=== PATIENT | male | born 1950 | race Caucasian/White ===

== ENCOUNTER → 2016-05-18 | Outpatient (CLI) | payer OTHER, MEDICARE ==
--- NOTE | 2016-05-18 15:27 | DX ---
Lumbar Spine, 4 Views, at 2:39 p.m. Clinical History: 65-year-old male with low back pain radiating down the left leg for one month, wors ening over the last 4 days with no specific antecedent trauma. ICD-10 Diagnostic Code: M54.5. Comparison Study: None. Findings: There are 5 nonrib-bearing lumbar-type vertebral bodies. The vertebral body heights are ector ntained. There is 7 mm of L3 posterolisthesis above L4, and 5 mm of L4 anterolisthesis above L5. Ther e are ventral traction spurs at each level, however, most pronounced at L3 and L5. There is moderate L4-L5 and severe L5-S1 degenerative disk space narrowing. There is facet hypertrophy, most pronounced at the L4-L5 and L5-S1 levels, and a lower canal stenosis is not excluded. The oblique views do not demonstrate any pars interarticularis defect or facet malalignment. The interpediculate distances are appropriate. There is some degenerative subchondral sclerosis associated with the upper SI joints. T he sacral arcuate lines are well-contoured. Numerous phleboliths are seen in the pelvis. Each femoral head is well-seated within its respective acetabulum. The femoral and acetabular joint spaces are re asonably well-preserved. Impression: Multilevel degenerative spondylosis, with disk disease, which is most pronounced at L4-L 5 and L5-S1, where there is accompanying facet osseous arthropathy. If there is further concern regarding the patient's lumbago and left radicular symptoms, correlative MR imaging is recommended.
== END ==
LOC: BMCIMAGING 14:42
PROVIDERS: ATTEND Family Medicine
DX: M47.896 Other spondylosis, lumbar region (principal); M51.36 Other intervertebral disc degeneration, lumbar region; M12.88 Other specific arthropathies, not elsewhere classified, other specified site; M43.16 Spondylolisthesis, lumbar region

== ENCOUNTER 2016-06-09 13:51 | Observation (INO) | payer OTHER, MEDICARE ==
[2016-06-09] MEDS ORDERED: DIAZEPAM 10 MG/2 ML SYR IVP ONE (14:46)
--- NOTE | 2016-06-09 15:10 | EDPHY ---
H & P Stated Complaint: Sciatica-worse today Left side. Time Seen by Provider: 06/09/16 13:53 HPI/ROS: CHIEF COMPLAINT: left-sided low back pain, radiation down the leg HISTORY OF PRESENT ILLNESS: 65-year-old male presents emergency department complaining of worsening left-sided low back pain that radiates down left leg to foot. Patient states this started about 3 weeks ago, he has had 2 sessions of physical therapy a steroid Dosepak with no relief. Patient reports 3 days ago he was driving around site seeing with his friends and his pain has been worse. Patient went to his primary care's office today, his pain was not controlled he could not get off the table so they called an ambulance to transport him to the emergency department. Patient denies loss of control of his bowel or bladder, no saddle anesthesias, no leg weakness. No fevers. REVIEW OF SYSTEMS: A comprehensive 10 point review of systems is otherwise negative aside from elements mentioned in the history of present illness. Source: Patient Exam Limitations: No limitations - Personal History Current Tetanus/Diphtheria Vaccine: Unsure - Medical/Surgical History Hx Asthma: No Hx Chronic Respiratory Disease: No Hx Diabetes: No Hx Cardiac Disease: No Hx Renal Disease: No Hx Cirrhosis: No Hx Alcoholism: No Hx HIV/AIDS: No Hx Splenectomy or Spleen Trauma: No Other PMH: HTN-no longer takes meds, sciatica, Fx ribs. - Social History Smoking Status: Never smoked - Physical Exam Exam: Physical Exam Gen: Alert and Oriented, grimacing HEENT: PERRL, moist mucous membranes NECK: no meningismus CV: regular rate and regular rhythm PULM: CTAB, no wheezes ABDOMEN: soft, non tender to palpation, BS present BACK: Left-sided SI joint tenderness to palpation mild swelling NEURO: Neurologically grossly intact, 2/4 deep tendon reflexes right leg patellar and Achilles, unable to perform on left due to patient fighting with any movement of leg. EXTREMITIES: normal appearing SKIN: no rash or break in skin on exposed skin PSYCH: answers questions appropriately. Constitutional: Initial Vital Signs Temperature (C) 36.8 C 06/09/16 14:08 Heart Rate 76 06/09/16 14:08 Respiratory Rate 16 06/09/16 14:08 Blood Pressure 160/100 H 06/09/16 14:08 O2 Sat (%) 95 06/09/16 14:08 O2 Delivery Mode Room Air O2 (L/minute) 5 Allergies/Adverse Reactions: No Known Allergies Allergy (Unverified 06/09/16 14:12) Home Medications: Medication Instructions Recorded NK [No Known Home Meds] 06/09/16 Medical Decision Making - Diagnostics Imaging: Lumbar x-ray done on May 18- Impression: Multilevel degenerative spondylosis, with disk disease, which is most pronounced at L4 -L5 and L5-S1, where there is accompanying facet osseous arthropathy. If there is further concern regarding the patient's lumbago and left radicular symptoms, correlative MR imaging is recommended. Dictated By: John Santiago MD MRI of l spine pending ED Course/Re-evaluation: Patient has an IV in place by EMS and was given 100 mcg of fentanyl EN route. Patient has no evidence of cauda equina syndrome or spinal abscess though his pain is not controlled. MRI L-spine without contrast has been ordered. Patient has been given 5 mg of IV Valium and 0.5 mg of Dilaudid. 420pm- awaiting MRI. 5pm-Patient will be admitted to Hospital Medicine for pain control. I have spoken with Dr. gena arteaga. MRI is pending. Report passed on to Dr. Cline at the end of my shift. He will follow up on the MRI and call Neurosurgery if needed. Differential Diagnosis: The differential diagnosis for the patient's back pain included but was not limited to musculo-skeletal pain, epidural abscess, herniated disk, spinal fracture, cauda equina and intra-abdominal causes including urinary system. - Data Points Medications Given: Discontinued Medications Diazepam (Valium Injection) 5 mg IVP EDNOW ONE Stop: 06/09/16 14:47 Last Admin: 06/09/16 15:13 Dose: 5 mg Hydromorphone HCl (Dilaudid) 0.5 mg IVP EDNOW ONE Stop: 06/09/16 16:00 Last Admin: 06/09/16 16:15 Dose: 0.5 mg Departure - Departure Disposition: [facility] Inpatient Acute Clinical Impression: Intractable back pain, Left lumbar radiculitis Condition: Fair
[2016-06-09] MEDS ORDERED: HYDROmorphONE/DILAUDID 1 MG/ML SYR IVP ONE ×2 (15:59→16:51)
[2016-06-09] MEDS ORDERED: ACETAMINOPHEN 325 MG TAB PO PRN (17:06)
[2016-06-09] MEDS ORDERED: ONDANSETRON DISINTEGRATING 4 MG TAB PO PRN (17:06)
[2016-06-09] MEDS ORDERED: HYDROmorphONE/DILAUDID 2 MG TAB PO PRN (17:06)
[2016-06-09] MEDS ORDERED: ONDANSETRON 4 MG/2 ML VIAL IVP PRN (17:06)
[2016-06-09] MEDS ORDERED: NS 1,000 ML IV SCH (17:15)
--- NOTE | 2016-06-09 17:17 | PDGENHP ---
History and Physical - Chief Complaint Acute back pain - History of Present Illness HPI: 65-year-old male presenting with acute back pain characterized as severe pain located in his left lower back with associated radiating pain down his left lower extremity to his anterior kruse. Onset of symptoms was approximately 3 weeks ago and duration has been intermittent thereafter. It has been exacerbated by ambulation and the patient is currently unable to ambulate 2/2 pain. It was mildly alleviated with repositioning, notably into the seated or supine position, as well as oxycodone immediate release 20 mg. He has been taking ibuprofen 800 mg as well as a Medrol Dosepak without any particular relief from either 1 of those modalities. He was able to engage in physical therapy initially after the onset of symptoms, but the symptoms have become so severe that he is currently unable to. He also reports that symptoms became particularly severe approximately 4 days ago while he was sitting for a prolonged duration of time and now they have become intractable. He denies any trauma to his back several weeks ago and reports that he cannot otherwise localized any precipitating factors. History Information - Allergies/Home Medication List Allergies/Adverse Reactions: No Known Allergies Allergy (Unverified 06/09/16 14:12) Home Medications: NK [No Known Home Meds] 06/09/16 [Last Taken Unknown] I have personally reviewed and updated: family history, medical history, social history, surgical history - Past Medical History hypertension (Not on medication) Additional medical history: Back pain approximately 20 years ago - Surgical History Reports: no pertinent surgical hx - Family History Additional family history: Sister with rheumatoid arthritis, mother with osteoarthritis - Social History Smoking Status: Never smoked Alcohol Use: None Drug Use: None Additional social history: 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, ambulatory 20% of his time Review of Systems ROS: 10pt was reviewed & negative except for what was stated in HPI & below Genitourinary: Reports: urgency Muscolosketal: Reports: back pain, other (Kruse pain) Physical Exam Temp Pulse Resp BP Pulse Ox 36.8 C 83 16 138/90 H 96 06/09/16 14:08 06/09/16 15:13 06/09/16 15:13 06/09/16 15:13 06/09/16 15:15 Constitutional: no apparent distress, appears nourished, uncomfortable, No not in pain Eyes: PERRL, anicteric sclera, EOMI Ears, Nose, Mouth, Throat: moist mucous membranes, hearing normal, ears appear normal, no oral mucosal ulcers Cardiovascular: regular rate and rhythym, no murmur, rub, or gallop, No edema Respiratory: no respiratory distress, no rales or rhonchi, clear to auscultation Gastrointestinal: normoactive bowel sounds, soft, non-tender abdomen, no palpable masses Genitourinary: no bladder fullness, no bladder tenderness Skin: warm, normal color, no rashes or abrasions, no fluctuance, no induration, No mottled Musculoskeletal: other (No tenderness to palpation over the left hip or left groin, no left knee effusion, no muscular abnormality in the left kruse or left quadriceps) Neurologic: AAOx3, sensation intact bilaterally, other (Positive straight leg raise at approximately 30 degrees on the left), No weakness Psychiatric: interacting appropriately, not anxious, not encephalopathic, thought process linear Assessment & Plan Assessment: 65-year-old male presenting with acute lower back pain and sciatica Plan: 1. Lower back pain. Acute, new problem this provider, further workup indicated. X-ray from 05/18/2016 demonstrates spondylolisthesis with L4-L5 and L5-S1 facet arthropathy, most likely source of patient's pain -get MRI of lower back to determine whether surgical intervention is indicated ( discussed with Dr. Cline and Bee, herniated disc at the suspected level) -hold NSAIDS given possibility of surgical intervention -as needed oral and IV Dilaudid for breakthrough pain relief -initiate gabapentin 300 mg at bedtime -as needed robaxin -bowel regimen -d/w FEI Eller will consult on patient in AM -make NPO after midnight with lab panel in a.m. in case the patient is an interventional candidate -PT/case management 2. Positional sleep apnea. Reviewed outside records including sleep study from 12/07/[address] Damian Pascual, reports the patient has positional sleep apnea -CPAP p.r.n. Diet. Regular, NPO after midnight Prophylaxis. Moderate risk, SCDs given possible procedural intervention Code. Full Disposition. Anticipated discharge is 06/10/2016, pending stabilization of the patient's pain and inability to ambulate. If patient requires surgical intervention, he will be upgraded to inpatient admission status.
--- NOTE | 2016-06-09 18:05 | MR ---
MRI of the Lumbar Spine (Without Contrast) at 1708 hours Clinical Indications: Left radiculopathy. Technique: Sagittal and axial T1 and T2 and sagittal STIR MR sequences of the lumbar spine, without contrast. Axial imaging from T12-S1. Findings: Lumbar vertebral bodies are of normal height, without compression fractures. Conus medull shira is low lying and ends at L3. T11-T12: Sagittal images demonstrate ventral osteophytes, without disk herniation or stenosis. T12-L1: No disk herniation or stenosis. L1-L2: No disk herniation or stenosis. L2-L3: Mild degenerative disk disease and mild bilateral facet arthropathy resulting in minimal cent ral canal stenosis, without neural foraminal stenosis. L3-L4: Mild degenerative disk disease, circumferential disk bulge, and moderate bilateral facet arth ropathy resulting in mild central canal stenosis, mild retrolisthesis, and mild to moderate left neur al foraminal stenosis. L4-L5: Severe bilateral facet arthropathy, minimal grade 1 anterolisthesis, and left neural foramina l disk herniation resulting in moderate central canal stenosis, severe left neural foraminal stenosis , and mild right neural foraminal stenosis. L5-S1: Severe degenerative disk disease, moderate loss of disk height, endplate diskogenic changes, degenerative retrolisthesis, left paramedian small disk herniation, protrusion, and moderate bilatera l facet arthropathy resulting in moderate to severe bilateral neural foraminal stenosis and mild left lateral recess stenosis, without central canal stenosis. Impression: 1. L4-L5: Severe left neural foraminal stenosis and moderate central canal stenosis secondary to se juanita bilateral facet arthropathy, left neural foraminal disk herniation, and degenerative grade 1 ant erolisthesis. 2. L5-S1: Moderate to severe bilateral neural foraminal stenosis secondary to severe degenerative d isk disease, degenerative grade 1 retrolisthesis, and moderate bilateral facet arthropathy, with left paramedian disk protrusion. 3. Low-lying conus medullaris ending at the L3 level. 4. Please see above findings at specific disk levels. Findings and recommendations given to Dr. Kaz London at 1750 hours, on June 09, 2016. Final report concurs with initial preliminary interpretation.
[2016-06-09] MEDS ORDERED: KETOROLAC 30 MG/1 ML SDV IVP ONE (18:20)
[2016-06-09] MEDS ORDERED: METHOCARBAMOL 750 MG TAB PO PRN (18:21)
[2016-06-09] MEDS ORDERED: MAGNESIUM HYDROXIDE 30 ML UDCUP PO PRN (18:24)
[2016-06-09] MEDS ORDERED: POLYETHYLENE GLYCOL 3350 17 GM PKT PO PRN (18:24)
[2016-06-09] MEDS ORDERED: LACTULOSE 20 GM/30 ML UDCUP PO PRN (18:24)
[2016-06-09] MEDS ORDERED: BISACODYL 10 MG SUPP PR PRN (18:24)
[2016-06-09] MEDS: SENNOSIDES/DOCUSATE SODIUM TAB PO SCH (20:27)
[2016-06-09] MEDS ORDERED: NAPROXEN SODIUM 220 MG TAB PO SCH (21:00)
[2016-06-09] MEDS ORDERED: GABAPENTIN 300 MG CAP PO SCH (21:00)
[2016-06-10] MEDS: HYDROmorphONE/DILAUDID 1 MG/ML SYR IVP PRN ×3 (05:03→10:25)
[2016-06-10 08:44] LABS: % IMMATURE GRANULYOCYTES 0.4 % (0.0-1.1); ABSOLUTE IMMATURE GRANULOCYTES 0.04 10^3/uL (0.00-0.10); ADD DIFF? NO; ADD MORPH? NO; ADD SCAN? NO; ATYPICAL LYMPHOCYTE FLAG 0 (0-99); FRAGMENT RBC FLAG 0 (0-99); HEMOGLOBIN 17.8 g/dL (13.7-17.5); LEFT SHIFT FLG 0 (0-99); LIPEMIA HEMOLYSIS FLAG 90 (0-99); MEAN CELL HEMOGLOBIN 31.1 pg (27.9-34.1); MEAN CELL HEMOGLOBIN CONCENTR. 34.9 g/dL (32.4-36.7); MEAN PLATELET VOLUME 10.4 fL (8.7-11.7); PLATELET CLUMPS FLAG 0 (0-99); PLATELET COUNT 200 10^3/uL (150-400); RED BLOOD CELL COUNT 5.73 10^6/uL (4.40-6.38); RED CELL DISTRIBUTION WIDTH 12.2 % (11.5-15.2)
[2016-06-10 08:49] LABS: INR 1.02 (0.83-1.16); PROTIME(PATIENT) 13.3 SEC (12.0-15.0)
[2016-06-10 08:50] LABS: APTT 26.9 SEC (23.0-38.0)
[2016-06-10 09:15] LABS: ANION GAP 11 mEq/L (8-16); CALCIUM 9.2 mg/dL (8.5-10.4); CARBON DIOXIDE 22 mEq/l (22-31); CHLORIDE 107 mEq/L (97-110); CREATININE 0.9 mg/dL (0.7-1.3); GLOMERULAR FILTRATION RATE > 60; GLUCOSE 113 mg/dL (70-100); POTASSIUM 4.3 mEq/L (3.5-5.2); SODIUM 140 mEq/L (134-144)
[2016-06-10] MEDS ORDERED: DIAZEPAM 10 MG/2 ML SYR IVP PRN (09:15)
[2016-06-10] MEDS: SENNOSIDES/DOCUSATE SODIUM TAB PO SCH (09:29)
--- NOTE | 2016-06-10 10:39 | GCON ---
[f rep st] CONSULTATION NEUROSURGICAL CONSULTATION DATE OF CONSULTATION: 06/10/2016 CHIEF COMPLAINT: Left lower extremity pain. HISTORY OF PRESENT ILLNESS: The patient is a pleasant 65-year-old gentleman who states that approxim ately 3 weeks ago he developed severe left leg pain. The patient was treated at urgent care with Med rol Dosepak, which he states did not provide any particular improvement of the symptoms. He was able to then somewhat manage his pain with use of anti-inflammatories and activity modification. However , his pain recurred and the patient noted that he was having a difficult time standing and walking, b ut was able to sit. Then his pain became nearly intolerable to the point where he could not even sta nd, walk or sit, and needed to lay down. He presented to the emergency room for further evaluation. He was admitted to the hospital for pain control by Dr. London. Currently, the patient reports minimal back pain and primarily left lower extremity radicular symptom s radiating from his left buttock, down his anterior lateral thigh, into the pretibial region and int o the top of the left foot. He denies any weakness or bowel or bladder incontinence. ALLERGIES: No known drug allergies. CURRENT MEDICATIONS: None. PAST MEDICAL HISTORY: Noncontributory. PAST SURGICAL HISTORY: Back cyst removal in childhood. SOCIAL HISTORY: The patient is . He works. He does not smoke. He occasionally drinks beer maybe 2 or 3 times a week. REVIEW OF SYSTEMS: A 10-point review of systems was reviewed and negative except for what is stated in the HPI. PHYSICAL EXAM: GENERAL: A pleasant, healthy-appearing 65-year-old male, in moderate distress. HEAD , EARS, EYES, NOSE, THROAT: Within normal limits. EXTREMITIES: Within normal limits. ABDOMEN: So ft, nontender, nondistended. SKIN: [place], warm and dry. NEUROLOGIC: Patient is awake, alert, and o riented x4. Cranial nerves 2-12 are intact on gross examination. Speech is fluent. Tongue is midli ne. Spinal accessory muscles are intact. There is no weakness in the dorsiflexors, plantar flexors or EHL bilaterally. Reflexes are 1/4 bilateral biceps and brachia radialis, and 2/4 at the left gates llar tendon, 1/4 at the right patellar tendon with no clonus. DATA REVIEW: Lab results: White blood cell count 9.2, hemoglobin 17.8, hematocrit 51, platelets 200 . Chemistry shows sodium of 140, potassium 4.3, chloride 107, carbon dioxide 22, BUN 25, creatinine 0.9. INR 1.02. MRI lumbar spine, without contrast, was reviewed and demonstrates severe bilateral facet arthropathy at L4-5 with a minimal, grade 1 anterolisthesis, and left neural foraminal disc herniation resulting in moderate central canal stenosis and severe left neural foraminal stenosis, and mild right foramina l stenosis. At L5-S1, there is severe degenerative disk disease with moderate loss of disk height, a small left paramedian disk herniation, and moderate bilateral facet arthropathy resulting in moderat e to severe bilateral neural foraminal stenosis and mild left lateral recess stenosis without central canal stenosis. AP and lateral x-rays of the lumbar spine demonstrated mild L4-5 spondylolisthesis. IMPRESSION: This is a 65-year-old male with severe left L5 radicular symptoms likely related to his L4-5 spondylolisthesis, degenerative disease and severe left neural foraminal stenosis, and to a less er degree L5-S1 degenerative disk disease with left-sided foraminal narrowing. He remains neurologic ally intact with ongoing severe pain in his left leg, with minimal back pain. PLAN: All of the above issues were discussed with the patient in detail, and the plan was discussed with Dr. Live who examined and spoke to the patient today. At this time, the patient has th e option of proceeding with surgical intervention versus an epidural steroid injection. At this time , the patient would like to proceed with an epidural steroid injection as a 1st step. I have contacted Dr. Mccauley today, and we will set him up for a left L5 transforaminal epidural steroid injection to be done today. The patient is n.p.o. /[id number]/MODL
[2016-06-10] MEDS ORDERED: FLU VACC TS 2016-17(65YR+)/PF 0.5 ML SYR (FLUZONE HIGH DOSE) IM ONE (11:08)
[2016-06-10] MEDS ORDERED: BUPIVACAINE 0.5% 30 ML SDV ONE (11:31)
[2016-06-10] MEDS ORDERED: LIDOCAINE 1% 30 ML SDV ONE (11:32)
[2016-06-10] MEDS ORDERED: IOPAMIDOL (ISOVUE-M 300) 15 ML VIAL IV ONE (11:32)
[2016-06-10] MEDS ORDERED: TRIAMCINOLONE ACETONIDE 200 MG/5 ML MDV IM ONE (11:32)
[2016-06-10 11:53] VITALS: BP 133/77; PULSE 82; RESP 17; TEMP 98.7; O2SAT 90
--- NOTE | 2016-06-10 16:45 | GDS ---
[f rep st] DISCHARGE SUMMARY DISCHARGE DIAGNOSIS: Severe L4-L5 and L5-S1 stenosis with left leg radiculopathy. HISTORY: This is a 65-year-old male presenting with leg pain. HOSPITAL COURSE: Patient was admitted. The patient had severe pain. He had MRI that did show radic ulopathy at L4-L5 and L5-S1. He underwent epidural steroid injection. His pain essentially resolved with this. He will be discharged home. He is to see neurosurgery as an outpatient. /[id number]/MODL
--- NOTE | 2016-06-10 18:46 | IR ---
Left L4 and L5 Transforaminal Epidural Steroid Injection and Selective Nerve Root Blocks Indication: Significant left leg pain, posterior thigh, lateral thigh, medial calf. MRI shows parac entral disk herniation at L4-L5. Informed Consent: Obtained from the patient. Risks and benefits were discussed. Cross Cutting Measure: Patient's current list of medications including all known prescriptions, over -the-counters, herbals, and vitamin/mineral/dietary supplements are reviewed. Medications' name, dos age, frequency, and route of administration are confirmed. Patient is a non-smoker. Prophylactic Antibiotic: Cefazolin was not ordered and administered for antimicrobial prophylaxis be cause it was not medically necessary. VTE Prophylaxis: There is not an order for VTE prophylaxis to be given within 24 hours of the proced ure end time. VTE prophylaxis was not given because it was not medically necessary. Technique: Patient is placed in prone position. A "timeout" procedure was performed to identify the correct patient and the correct procedure. 1% Xylocaine was used for local anesthetic. All element s of maximal sterile barrier technique, including cap, mask, sterile gown, sterile gloves, large ster ile sheet, hand hygiene, and 2% chlorhexidine for cutaneous antisepsis, followed. After discussion with Dr. Live, decision was made to perform both L4 and L5 selective nerve root blocks and transforaminal epidural injections. 22-gauge spinal needle was inserted via infrapedicular approach at L5 first. Contrast injection show s epidural space and the neural foramen. This is followed by 60 mg of Kenalog and 3 mL of bupivacain e and lidocaine mixture. In a similar fashion, L4 infrapedicular approach is chosen, and L4 left transforaminal epi and select gurjit nerve root block was also performed. Pain was mostly at the left knee with L4 injection, and at the buttock with L5 injection. Medication: Local anesthetics only. Fluoroscopy: 6.9 minutes, 7 images. Impression: Left L4-L5 and L5-S1 transforaminal epidural steroid injection and selective nerve root block respectively performed, as above.
== END 2016-06-10 15:31 | disposition home or self-care (01) ==
LOC: EDUNIT# → F3N 18:35
PROVIDERS: ADMIT Internal Medicine; ATTEND Internal Medicine
PROC: 3E0R3BZ Introduction of Anesthetic Agent into Spinal Canal, Percutaneous Approach (ICD-10-PCS; principal; 2016-06-09)
PROC: 3E0S33Z Introduction of Anti-inflammatory into Epidural Space, Percutaneous Approach (ICD-10-PCS; 2016-06-09)
DX: M48.06 Spinal stenosis, lumbar region (principal); M54.16 Radiculopathy, lumbar region; M51.36 Other intervertebral disc degeneration, lumbar region; M43.16 Spondylolisthesis, lumbar region; G95.81 Conus medullaris syndrome; I10 Essential (primary) hypertension; G47.30 Sleep apnea, unspecified; Z23 Encounter for immunization
CPT/HCPCS: 62323; 64483; 72148; 90662; 96374; 96375; 96376; 97161; 99285; G0008; G0378; G8978; G8979; G8980; J1170; J3301; Q9967

== ENCOUNTER → 2016-12-08 | Outpatient (CLI) | payer OTHER, MEDICARE | LOC: BMCIMAGING 13:27 | PROVIDERS: ATTEND Family Medicine | DX: S89.91XA Unspecified injury of right lower leg, initial encounter (principal); M17.11 Unilateral primary osteoarthritis, right knee; M25.461 Effusion, right knee ==

== ENCOUNTER → 2017-01-01 | Outpatient (CLI) | payer OTHER, MEDICARE | LOC: FIMAGING 07:40 | PROVIDERS: ATTEND Physician Assistant | DX: M23.321 Other meniscus derangements, posterior horn of medial meniscus, right knee (principal); M94.8X6 Other specified disorders of cartilage, lower leg; M94.261 Chondromalacia, right knee; M76.31 Iliotibial band syndrome, right leg; M25.461 Effusion, right knee ==